=== PATIENT | female | born 1995 | race Caucasian/White ===

== ENCOUNTER 2017-07-31 21:11 | Emergency (ER) | payer BC | END 2017-07-31 21:50 | disposition home or self-care (01) | LOC: ERS 21:11 | DX: H65.92 Unspecified nonsuppurative otitis media, left ear (principal) | CPT/HCPCS: 99282 ==

== ENCOUNTER 2025-07-31 11:33 | Outpatient (CLI) | payer OTHER | END 2025-07-31 11:34 | disposition home or self-care (01) | LOC: SCSRAD 11:33 | PROVIDERS: ATTEND Family Medicine | DX: M47.26 Other spondylosis with radiculopathy, lumbar region (principal); M47.27 Other spondylosis with radiculopathy, lumbosacral region; M40.56 Lordosis, unspecified, lumbar region | CPT/HCPCS: 72110 ==